=== PATIENT | female | born 1945 | race Caucasian/White ===

== ENCOUNTER 2024-10-25 10:13 | Day surgery (SDC) | payer MEDICARE ==
[2024-10-24 10:51] LABS: BASOPHILS % (AUTO) 0.6 % (0-1); EOSINOPHILS # (AUTO) 0.2 X10'3 (0-0.9); EOSINOPHILS % (AUTO) 3.6 % (0-6); HEMATOCRIT 39.2 % (35.0-45.0); HEMOGLOBIN 13.4 g/dl (12.0-16.0); LYMPHOCYTES # (AUTO) 1.7 X10'3 (1.1-4.8); LYMPHOCYTES % (AUTO) 26.3 % (21-51); MEAN CORPUSCULAR HEMOGLOBIN 30.4 PG (27.0-31.0); MEAN CORPUSCULAR HGB CONC 34.1 g/dL (33.0-36.5); MEAN CORPUSCULAR VOLUME 89.2 FL (78-98); MEAN PLATELET VOLUME 8.5 FL (7.4-10.4); MONOCYTES # (AUTO) 0.7 X10'3 (0-0.9); MONOCYTES % (AUTO) 10.5 % (2-12); NEUTROPHILS # (AUTO) 3.8 X10'3 (1.8-7.7); PLATELET COUNT 195 X10'3 (140-440); RED CELL DISTRIBUTION WIDTH 13.8 % (11.5-14.5); WHITE BLOOD COUNT 6.4 X10'3 (4.5-11.0)
[2024-10-24 11:09] LABS: ALBUMIN 3.6 G/DL (3.4-5.0); ANION GAP 7 (8-16); APTT 26 SECONDS (22-32); BLOOD UREA NITROGEN 16 MG/DL (7-18); BUN/CREATININE RATIO 19.5 (10.0-20.0); CALCIUM 8.9 MG/DL (8.5-10.1); CHLORIDE 106 MMOL/L (99-107); CREATININE 0.82 MG/DL (0.40-0.90); GLUCOSE 90 MG/DL (70-104); PROTHROMBIN TIME 10.5 SECONDS (9.0-12.0); SODIUM 142 MMOL/L (135-145); TOTAL CARBON DIOXIDE 28.6 MMOL/L (24-32); eGFR 68 ML/MIN
[2024-10-25] VITALS (8 sets, daily range): BP systolic 127–151; BP diastolic 85–99; PULSE 82–90; RESP 14–15; O2SAT 95–98
[~2024-10-25] VITALS: Ht 170.2 cm; Wt 101.4 kg
[2024-10-25] MEDS: diphenhydrAMINE 25mg capsule PO PRN (13:31)
[2024-10-25] MEDS: LORazepam 0.5 MG tablet PO PRN (13:31)
[2024-10-25] MEDS: normal saline 1,000 ML IV SCH (13:32)
[2024-10-25] MEDS ORDERED: verapamil 2.5 mg/ml inj IV ONE (14:10)
[2024-10-25] MEDS ORDERED: midazolam 1 mg/ML 2ml injection ONE (14:10)
[2024-10-25] MEDS ORDERED: LIDOcaine 1% 30ml preserv. free vial ONE (14:10)
[2024-10-25] MEDS ORDERED: fentaNYL/PF 50MCG/1 ML 2ML syringe ONE (14:10)
[2024-10-25] MEDS ORDERED: heparin 1,000unit/ml 10ml vial 10 ML ONE (14:11)
[2024-10-25] MEDS ORDERED: iohexol 350MG/ML 100ml bottle IV ONE ×2 (14:11→15:12)
[2024-10-25] MEDS ORDERED: LIDOcaine 1% (10mg/ml) 2ml vial ONE ×2 (14:11→14:13)
[2024-10-25] MEDS ORDERED: iohexol 350 MG/ML 50ML vial IV ONE ×2 (14:11→15:05)
[2024-10-25] MEDS ORDERED: nitroGLYCERIN 500mcg/5mL D5W 5 ML IV ONE (14:14)
[2024-10-25] MEDS ORDERED: OMEP20CA16 PO (14:21)
[2024-10-25] MEDS ORDERED: ROSU5TAB51 PO (14:21)
[2024-10-25] MEDS ORDERED: LEVO200T PO (14:21)
[2024-10-25] MEDS ORDERED: NORT25CA PO (14:21)
[2024-10-25] MEDS ORDERED: MELO-102 PO (14:21)
[2024-10-25] MEDS ORDERED: CARV6.253 PO (14:21)
[2024-10-25] MEDS ORDERED: LOSA25TA41 PO (14:21)
[2024-10-25] MEDS ORDERED: acetaminophen 325mg tablet PO PRN (16:35)
[2024-10-25] MEDS ORDERED: normal saline 1000ml 1,000 ML IV SCH (16:35)
[2024-10-25] MEDS ORDERED: HYDROcodone/acetaminophen 10/325mg tab PO PRN (16:35)
[2024-10-25] MEDS ORDERED: HYDROcodone/acetaminophen 5mg/325mg tablet PO PRN (16:35)
[2024-10-25] MEDS ORDERED: ondansetron/PF 4mg/2ml inj IV PRN (16:40)
[2024-10-25] MEDS ORDERED: proCHLORperazine 10 MG/2 ml inj IV PRN (16:40)
[2024-10-25] MEDS: acetaminophen 325mg tablet PO ONE (17:14)
== END 2024-10-25 19:00 | disposition home or self-care (01) ==
LOC: SSTAY O 10:13
PROVIDERS: ATTEND Internal Medicine Cardiovascular Disease
DX: R94.39 Abnormal result of other cardiovascular function study (principal); I25.10 Atherosclerotic heart disease of native coronary artery without angina pectoris; I10 Essential (primary) hypertension; I08.3 Combined rheumatic disorders of mitral, aortic and tricuspid valves; E78.5 Hyperlipidemia, unspecified; I47.10 Supraventricular tachycardia, unspecified; N28.1 Cyst of kidney, acquired; I71.21 Aneurysm of the ascending aorta, without rupture; K21.9 Gastro-esophageal reflux disease without esophagitis; Z79.899 Other long term (current) drug therapy; Z82.49 Family history of ischemic heart disease and other diseases of the circulatory system; Z82.3 Family history of stroke; Z98.890 Other specified postprocedural states
CPT/HCPCS: 36415; 71250; 80048; 85025; 85610; 85730; 93005; 93458; 93567; 99152; 99153; A6258; A6402; C1725; C1751; C1894; J1644; J2003; J2250; J3010; J3490; J7030; Q0163; Q9967; Z7610; 76937; A6449

== ENCOUNTER 2024-12-01 08:00 | Inpatient (IN) | payer MEDICARE ==
[2024-11-24] MEDS: albuterol 2.5 MG/3 ML nebule NEB ONE (12:15)
[2024-11-24 12:30] VITALS: PULSE 82; RESP 16; O2SAT 96
[2024-11-24 13:27] LABS: BASOPHILS % (AUTO) 0.7 % (0-1); EOSINOPHILS # (AUTO) 0.2 X10'3 (0-0.9); EOSINOPHILS % (AUTO) 3.7 % (0-6); LYMPHOCYTES # (AUTO) 1.3 X10'3 (1.1-4.8); LYMPHOCYTES % (AUTO) 24.8 % (21-51); MEAN CORPUSCULAR HEMOGLOBIN 30.4 PG (27.0-31.0); MEAN CORPUSCULAR HGB CONC 33.9 g/dL (33.0-36.5); MEAN CORPUSCULAR VOLUME 89.6 FL (78-98); MEAN PLATELET VOLUME 8.9 FL (7.4-10.4); MONOCYTES # (AUTO) 0.6 X10'3 (0-0.9); MONOCYTES % (AUTO) 11.6 % (2-12); NEUTROPHILS % (AUTO) 59.2 % (42-75); PRE OP HEMATOCRIT 40.9 % (35.0-45.0); PRE OP HEMOGLOBIN 13.9 g/dL (12.0-16.0); PRE OP PLATELET COUNT 193 X10'3 (140-440); PRE OP WHITE BLOOD COUNT 5.1 10'3 (4.8-10.8); RED BLOOD COUNT 4.56 X10'6 (4.20-5.60)
[2024-11-24 13:47] LABS: ALBUMIN 3.6 G/DL (3.4-5.0); ALKALINE PHOSPHATASE 65 IU/L (46-116); BLOOD UREA NITROGEN 16 MG/DL (7-18); BUN/CREATININE RATIO 19.5 (10.0-20.0); CALCIUM 8.8 MG/DL (8.5-10.1); CHLORIDE 106 MMOL/L (99-107); CREATININE 0.82 MG/DL (0.40-0.90); PRE OP ALT 22 U/L (30-65); PRE OP ANION GAP 8 (8-16); PRE OP AST 12 U/L (10-37); PRE OP BILIRUB, TOTAL 0.4 MG/DL (0.0-1.0); PRE OP GLUCOSE 99 MG/DL (70-104); PRE OP POTASSIUM 4.3 MMOL/L (3.4-5.1); PRE OP PROTIME 10.5 SECONDS (9.0-12.0); PRE OP SODIUM 141 MMOL/L (135-145); TOTAL PROTEIN 7.1 G/DL (6.4-8.2); eCRCL 56 ML/MIN; eGFR 68 ML/MIN
[2024-11-24 13:52] LABS: HEMOGLOBIN A1C 5.2 % (4.5-6.2)
[2024-11-24 14:43] LABS: ABG BASE EXCESS 0.1 mmol/L (-2.0-3.0); ABG HCO3 24.2 mmol/L (21.0-28.0); ABG PCO2 (T) 37.7 mmHg (32.0-45.0); ABG PH (T) 7.426 (7.350-7.450); ABG PO2 (T) 75.2 mmHg (83.0-108.0); ALLEN'S TEST POSITIVE; FCOHb 0.9 % (0.5-1.5); FHHb 4.9 % (0.0-5.0); FMetHb 0.3 % (0.0-1.5); FO2Hb 93.9 % (94.0-98.0); MODE ROOM AIR; TOTAL HEMOGLOBIN 13.7 G/dl (12.0-16.0)
[~2024-12-01] VITALS: Ht 153.7 cm; Wt 106.6 kg
[~2024-12-01 08:00] MED LIST: CARV6.253 PO; LEVO200T PO; LOSA25TA41 PO; MELO-102 PO; NORT25CA PO; OMEP20CA16 PO; ROSU20TA98 PO
[2024-12-03] VITALS (15 sets, daily range): BP systolic 85–155; BP diastolic 43–96; PULSE 67–86; RESP 12–16; TEMP 98.2; O2SAT 95–100
[2024-12-03] MEDS: DOCUMENT DATE & TIME OF BETA-BLOCKER PO ONE (05:30)
[2024-12-03] MEDS: metoprolol tartrate 12.5mg (1/2 tablet) PO ONE (05:30)
[2024-12-03] MEDS ORDERED: dextrose 50%-water 50ml dispensing syringe IV PRN ×2 (05:30→17:40)
[2024-12-03] MEDS: Insulin Reg/NS 100units/100mL 100 ML IV SCH ×2 (05:30→17:40)
[2024-12-03] MEDS ORDERED: insulin glargine (Lantus) pen - multi-dose SQ PRN ×2 (05:30→17:40)
[2024-12-03] MEDS ORDERED: vancomycin 1,000mg inj ONE (07:00)
[2024-12-03] MEDS ORDERED: epiNEPHrine 1 mg/ml inj ONE (07:00)
[2024-12-03] MEDS ORDERED: ceFAZolin 1000mg inj ONE (07:00)
[2024-12-03] MEDS ORDERED: BUPIVAcaine 0.5% inj/PF 30 ML ONE (07:01)
[2024-12-03] MEDS: ceFAZolin 2gm in dextrose, iso 50 ML IV ONE (10:50)
[2024-12-03] MEDS: famotidine 20mg tablet PO ONE (10:50)
[2024-12-03] MEDS: VANCOMYCIN/H2O 1.5g/300mL PB 300 ML IV ONE (10:50)
[2024-12-03] MEDS: ringers solution, lacted 1,000 ML IV SCH (10:50)
[2024-12-03 11:59] LABS: BILIRUBIN,URINE NEGATIVE (Neg); CLARITY,URINE CLEAR (Clear); COLOR,URINE YELLOW (Yellow); GLUCOSE, URINE NEGATIVE (Neg); KETONES,URINE NEGATIVE (Neg); LEUKOCYTE ESTERASE ,URINE TRACE (Neg); NITRITES, URINE NEGATIVE (Neg); OCCULT BLOOD,URINE NEGATIVE (Neg); PROTEIN,URINE NEGATIVE (Neg); UROBILINOGEN,URINE 0.2 E.U/dL (0.2-1.0)
[2024-12-03 12:03] LABS: UA COLLECTION TYPE CLN CATCH MIDSTREAM
[2024-12-03 12:04] LABS: BACTERIA,URINE NONE SEEN /HPF (Neg); MUCUS STRANDS NONE SEEN /LPF (Neg); RBC,URINE NONE SEEN /HPF (0-2); SQUAMOUS EPITHELIAL CELL,UR FEW /LPF (FEW); WBC,URINE 0-4 /HPF (0-4)
[2024-12-03] MEDS: LORazepam 2 mg/ml vial IV ONE (12:12)
[2024-12-03] MEDS: mupirocin 2% nasal ointment 1gm UD NS ONE (12:13)
[2024-12-03] MEDS ORDERED: SUfentanil 50mcg/ml 1ml amp IV ONE (12:40)
[2024-12-03] MEDS ORDERED: MIDAZolam 1 MG/ML 5ML VIAL ONE (12:40)
[2024-12-03] MEDS ORDERED: rocuronium 10mg/ml inj IV ONE ×2 (12:40)
[2024-12-03] MEDS ORDERED: sevoflurane 250ml liquid IH ONE (12:41)
[2024-12-03] MEDS ORDERED: propofol inj 20 ML IV ONE (12:44)
[2024-12-03] MEDS: epiNEPHrine 1 mg/ml inj IU ONE (13:52)
[2024-12-03] MEDS ORDERED: albumin (Human) 5% 250ml 250 ML IV ONE (14:08)
[2024-12-03] MEDS ORDERED: metoclopramide 5 mg/ml inj IV PRN (17:40)
[2024-12-03] MEDS ORDERED: magnesium hydroxide 30ml (MOM) UD suspension PO PRN (17:40)
[2024-12-03] MEDS ORDERED: potassium CL 10mEq/100ml bag 100 ML IV PRN (17:40)
[2024-12-03] MEDS ORDERED: ondansetron/PF 4mg/2ml inj IV PRN (17:40)
[2024-12-03] MEDS ORDERED: potassium Cl 20 mEq SR tablet PO PRN (17:40)
[2024-12-03] MEDS ORDERED: niCARDipine-NS 40mg/200ml IVPB 200 ML IV PRN (17:40)
[2024-12-03] MEDS ORDERED: potassium Cl 20mEq/100mL bag 100 ML IV PRN (17:40)
[2024-12-03] MEDS ORDERED: morphine 4 MG/ML inj SYRINge IV PRN (17:40)
[2024-12-03] MEDS ORDERED: acetaminophen 325mg tablet PO PRN (17:40)
[2024-12-03] MEDS ORDERED: potassium Cl 40MEQ/1/2NS 520ml 520 ML IV PRN (17:40)
[2024-12-03] MEDS ORDERED: magnesium sulf-water 4G/100mL 100 ML IV PRN (17:40)
[2024-12-03] MEDS ORDERED: mineral oil 133ml enema RC PRN (17:40)
[2024-12-03] MEDS ORDERED: sodium phosphate inj. 30 MMOL in dextrose 5%-water 250 ML IV PRN (17:40)
[2024-12-03] MEDS ORDERED: bisacodyl 10mg suppository rectal RC PRN (17:40)
[2024-12-03] MEDS ORDERED: Neutra Phos packet PO PRN (17:40)
[2024-12-03] MEDS: albumin (Human) 5% 250ml 250 ML IV PRN (18:12)
[2024-12-03] MEDS: nitroGLYCERIN-Tridil 50MG/D5W 250 ML IV SCH (18:12)
[2024-12-03] MEDS: sodium chloride 0.45% 1,000 ML IV SCH (18:13)
[2024-12-03] MEDS ORDERED: propofol 10mg/ml 20ml vial IV PRN (18:20)
[2024-12-03] MEDS ORDERED: fentaNYL/PF 50MCG/1 ML 2ML syringe IV PRN (18:20)
[2024-12-03 18:26] LABS: BASOPHILS % (AUTO) 0.2 % (0-1); EOSINOPHILS # (AUTO) 0.1 X10'3 (0-0.9); EOSINOPHILS % (AUTO) 0.6 % (0-6); HEMATOCRIT 29.6 % (35.0-45.0); HEMOGLOBIN 9.8 g/dl (12.0-16.0); LYMPHOCYTES # (AUTO) 0.9 X10'3 (1.1-4.8); LYMPHOCYTES % (AUTO) 7.8 % (21-51); MEAN CORPUSCULAR HEMOGLOBIN 29.9 PG (27.0-31.0); MEAN CORPUSCULAR HGB CONC 33.2 g/dL (33.0-36.5); MEAN CORPUSCULAR VOLUME 89.9 FL (78-98); MEAN PLATELET VOLUME 8.3 FL (7.4-10.4); MONOCYTES # (AUTO) 0.7 X10'3 (0-0.9); MONOCYTES % (AUTO) 5.5 % (2-12); NEUTROPHILS # (AUTO) 10.4 X10'3 (1.8-7.7); NEUTROPHILS % (AUTO) 85.9 % (42-75); PLATELET COUNT 122 X10'3 (140-440); RED BLOOD COUNT 3.29 X10'6 (4.20-5.60); RED CELL DISTRIBUTION WIDTH 13.9 % (11.5-14.5); WHITE BLOOD COUNT 12.1 X10'3 (4.5-11.0)
[2024-12-03 18:34] LABS: APTT 36 SECONDS (22-32); INR 1.4 INR; PROTHROMBIN TIME 14.4 SECONDS (9.0-12.0)
[2024-12-03 18:37] LABS: ALANINE AMINOTRANSFERASE 15 U/L (12-78); ALBUMIN 2.8 G/DL (3.4-5.0); ALBUMIN/GLOBULIN RATIO 1.8 (1.1-1.5); ALKALINE PHOSPHATASE 26 IU/L (46-116); ANION GAP 10 (8-16); ASPARTATE AMINO TRANSFERASE 30 U/L (10-37); BILIRUBIN,TOTAL 0.6 MG/DL (0.1-1.0); BLOOD UREA NITROGEN 13 MG/DL (7-18); BUN/CREATININE RATIO 15.7 (10.0-20.0); CALCIUM 7.3 MG/DL (8.5-10.1); CHLORIDE 110 MMOL/L (99-107); CREATININE 0.83 MG/DL (0.40-0.90); GLUCOSE 97 MG/DL (70-104); MAGNESIUM 3.2 MG/DL (1.5-2.4); PHOSPHORUS 1.5 MG/DL (2.3-4.5); POTASSIUM 3.2 MMOL/L (3.5-5.1); SODIUM 143 MMOL/L (135-145); TOTAL CARBON DIOXIDE 23.3 MMOL/L (24-32); TOTAL PROTEIN 4.4 G/DL (6.4-8.2); eCRCL 42 ML/MIN; eGFR 67 ML/MIN
[2024-12-03] MEDS: propofol 1000mg/100ml bottle 100 ML IV ONE (19:03)
[2024-12-03] MEDS: sodium phosphate inj. 15 MMOL in dextrose 5%-water 250 ML IV PRN (19:14)
[2024-12-03] MEDS: potassium Cl 40MEQ/270ML bag 250 ML IV PRN (19:14)
[2024-12-03] MEDS: propofol 1000mg/100ml bottle 100 ML IV SCH (19:47)
[2024-12-03] MEDS: FENTANYL-0.9 % NACL/PF 100 ML IV SCH (20:10)
[2024-12-03] MEDS: VANCOMYCIN 1GM 200ML H20 (PEG) 200 ML IV SCH (20:11)
[2024-12-03] MEDS: mupirocin 2% nasal ointment 1gm UD NS SCH (20:16)
[2024-12-03] MEDS: sennosides/docusate sodium tablet PO SCH (20:16)
[2024-12-03] MEDS: atorvastatin 10mg tablet PO SCH (20:16)
[2024-12-03] MEDS: nortriptyline 25mg capsule PO SCH (20:18)
[2024-12-04] VITALS (32 sets, daily range): BP systolic 75–115; BP diastolic 45–81; PULSE 81–100; RESP 12–28; O2SAT 92–98
[2024-12-04] MEDS: ceFAZolin/D5W- 1GM premix 50 ML IV SCH
[2024-12-04 00:28] LABS: BASOPHILS % (AUTO) 0.1 % (0-1); EOSINOPHILS % (AUTO) 0 % (0-6); HEMATOCRIT 24.4 % (35.0-45.0); HEMOGLOBIN 8.3 g/dl (12.0-16.0); LYMPHOCYTES # (AUTO) 0.4 X10'3 (1.1-4.8); MEAN CORPUSCULAR HEMOGLOBIN 30.4 PG (27.0-31.0); MEAN CORPUSCULAR HGB CONC 33.9 g/dL (33.0-36.5); MEAN CORPUSCULAR VOLUME 89.6 FL (78-98); MEAN PLATELET VOLUME 8.5 FL (7.4-10.4); MONOCYTES # (AUTO) 0.3 X10'3 (0-0.9); MONOCYTES % (AUTO) 3.5 % (2-12); NEUTROPHILS # (AUTO) 8.4 X10'3 (1.8-7.7); NEUTROPHILS % (AUTO) 92.4 % (42-75); PLATELET COUNT 97 X10'3 (140-440); RED BLOOD COUNT 2.73 X10'6 (4.20-5.60); RED CELL DISTRIBUTION WIDTH 14.1 % (11.5-14.5); WHITE BLOOD COUNT 9.1 X10'3 (4.5-11.0)
[2024-12-04 00:45] LABS: ALANINE AMINOTRANSFERASE 17 U/L (12-78); ALBUMIN 3.6 G/DL (3.4-5.0); ALBUMIN/GLOBULIN RATIO 2.6 (1.1-1.5); ALKALINE PHOSPHATASE 24 IU/L (46-116); ANION GAP 8 (8-16); ASPARTATE AMINO TRANSFERASE 32 U/L (10-37); BILIRUBIN,TOTAL 0.8 MG/DL (0.1-1.0); BLOOD UREA NITROGEN 15 MG/DL (7-18); BUN/CREATININE RATIO 16.5 (10.0-20.0); CHLORIDE 112 MMOL/L (99-107); CREATININE 0.91 MG/DL (0.40-0.90); GLUCOSE 179 MG/DL (70-104); MAGNESIUM 3.1 MG/DL (1.5-2.4); PHOSPHORUS 3.4 MG/DL (2.3-4.5); POTASSIUM 5.1 MMOL/L (3.5-5.1); SODIUM 142 MMOL/L (135-145); TOTAL CARBON DIOXIDE 22.3 MMOL/L (24-32); eCRCL 38 ML/MIN; eGFR 60 ML/MIN
[2024-12-04 07:26] LABS: ALANINE AMINOTRANSFERASE 17 U/L (12-78); ALBUMIN 3.6 G/DL (3.4-5.0); ALBUMIN/GLOBULIN RATIO 2.1 (1.1-1.5); ALKALINE PHOSPHATASE 21 IU/L (46-116); ANION GAP 7 (8-16); ASPARTATE AMINO TRANSFERASE 29 U/L (10-37); BILIRUBIN,TOTAL 0.4 MG/DL (0.1-1.0); BLOOD UREA NITROGEN 14 MG/DL (7-18); BUN/CREATININE RATIO 15.4 (10.0-20.0); CALCIUM 7.3 MG/DL (8.5-10.1); CHLORIDE 112 MMOL/L (99-107); CREATININE 0.91 MG/DL (0.40-0.90); GLUCOSE 123 MG/DL (70-104); MAGNESIUM 2.7 MG/DL (1.5-2.4); PHOSPHORUS 3.8 MG/DL (2.3-4.5); POTASSIUM 4.8 MMOL/L (3.5-5.1); SODIUM 144 MMOL/L (135-145); TOTAL CARBON DIOXIDE 24.6 MMOL/L (24-32); TOTAL PROTEIN 5.3 G/DL (6.4-8.2); eCRCL 38 ML/MIN; eGFR 60 ML/MIN
[2024-12-04 07:31] LABS: BASOPHILS % (AUTO) 0.1 % (0-1); EOSINOPHILS % (AUTO) 0 % (0-6); HEMATOCRIT 24.4 % (35.0-45.0); HEMOGLOBIN 8.2 g/dl (12.0-16.0); LYMPHOCYTES # (AUTO) 0.6 X10'3 (1.1-4.8); LYMPHOCYTES % (AUTO) 5.1 % (21-51); MEAN CORPUSCULAR HEMOGLOBIN 30.3 PG (27.0-31.0); MEAN CORPUSCULAR HGB CONC 33.4 g/dL (33.0-36.5); MEAN CORPUSCULAR VOLUME 90.7 FL (78-98); MEAN PLATELET VOLUME 9.2 FL (7.4-10.4); MONOCYTES # (AUTO) 0.5 X10'3 (0-0.9); MONOCYTES % (AUTO) 4.5 % (2-12); NEUTROPHILS # (AUTO) 9.8 X10'3 (1.8-7.7); NEUTROPHILS % (AUTO) 90.3 % (42-75); PLATELET COUNT 105 X10'3 (140-440); RED BLOOD COUNT 2.69 X10'6 (4.20-5.60); RED CELL DISTRIBUTION WIDTH 14.4 % (11.5-14.5); WHITE BLOOD COUNT 10.9 X10'3 (4.5-11.0)
[2024-12-04 07:36] LABS: ABG BASE EXCESS -3.8 mmol/L (-2.0-3.0); ABG HCO3 21.3 mmol/L (21.0-28.0); ABG OXYGEN SATURATION 98.1 % (94.0-98.0); ABG PCO2 (T) 39.2 mmHg (32.0-45.0); ABG PH (T) 7.354 (7.350-7.450); ABG PO2 (T) 107.8 mmHg (83.0-108.0); FCOHb 1.6 % (0.5-1.5); FHHb 1.9 % (0.0-5.0); FMetHb 0.3 % (0.0-1.5); FO2Hb 96.2 % (94.0-98.0); MODE SIMV/VC; PATIENT TEMPERATURE 37.3; PEEP 5 cm H2O; RESPIRATORY RATE 12 b/min; TIDAL VOLUME 450 mL; TOTAL HEMOGLOBIN 8.4 G/dl (12.0-16.0)
[2024-12-04 07:37] LABS: ABG BASE EXCESS -1.9 mmol/L (-2.0-3.0); ABG HCO3 21.6 mmol/L (21.0-28.0); ABG OXYGEN SATURATION 99.5 % (94.0-98.0); ABG PH (T) 7.468 (7.350-7.450); ABG PO2 (T) 270.6 mmHg (83.0-108.0); FCOHb 0.7 % (0.5-1.5); FHHb 0.5 % (0.0-5.0); FMetHb 0.3 % (0.0-1.5); FO2Hb 98.5 % (94.0-98.0); MODE VENT - SIMV/VC; PATIENT TEMPERATURE 35.3; PEEP 5 cm H2O; RESPIRATORY RATE 14 b/min; TIDAL VOLUME 500 mL; TOTAL HEMOGLOBIN 10.3 G/dl (12.0-16.0)
[2024-12-04 07:42] LABS: ABG BASE EXCESS 1.8 mmol/L (-2.0-3.0); ABG HCO3 25.1 mmol/L (21.0-28.0); ABG OXYGEN SATURATION 98.9 % (94.0-98.0); ABG PCO2 33.7 mmHg (32.0-45.0); CL (ABG) 104 mmol/L (98-107); FCOHb 0.1 % (0.5-1.5); FHHb 1.1 % (0.0-5.0); FMetHb 0.1 % (0.0-1.5); FO2Hb 98.7 % (94.0-98.0); GLUCOSE (ABG) 106 mg/dl (65-95); IONIZED CA (ABG) 0.93 mmol/L (1.15-1.33); K (ABG) 4.1 mmol/L (3.40-4.50); TOTAL HEMOGLOBIN 7.9 G/dl (12.0-16.0)
[2024-12-04 07:42] LABS: ABG BASE EXCESS 0.3 mmol/L (-2.0-3.0); ABG HCO3 26.7 mmol/L (21.0-28.0); ABG OXYGEN SATURATION 99.4 % (94.0-98.0); ABG PCO2 50.6 mmHg (32.0-45.0); ABG PH 7.341 (7.350-7.450); ABG PO2 275.4 mmHg (83.0-108.0); CL (ABG) 102 mmol/L (98-107); FCOHb 0.5 % (0.5-1.5); FHHb 0.6 % (0.0-5.0); FMetHb 0.3 % (0.0-1.5); FO2Hb 98.6 % (94.0-98.0); GLUCOSE (ABG) 141 mg/dl (65-95); IONIZED CA (ABG) 1.18 mmol/L (1.15-1.33); K (ABG) 4.5 mmol/L (3.40-4.50); TOTAL HEMOGLOBIN 13.4 G/dl (12.0-16.0)
[2024-12-04 07:42] LABS: ABG BASE EXCESS 1.5 mmol/L (-2.0-3.0); ABG OXYGEN SATURATION 98.9 % (94.0-98.0); ABG PCO2 34.7 mmHg (32.0-45.0); ABG PH 7.475 (7.350-7.450); CL (ABG) 103 mmol/L (98-107); FCOHb 0.3 % (0.5-1.5); FHHb 1.1 % (0.0-5.0); FMetHb 0.3 % (0.0-1.5); FO2Hb 98.3 % (94.0-98.0); GLUCOSE (ABG) 107 mg/dl (65-95); IONIZED CA (ABG) 0.94 mmol/L (1.15-1.33); TOTAL HEMOGLOBIN 8.5 G/dl (12.0-16.0)
[2024-12-04 07:43] LABS: ABG BASE EXCESS 0.9 mmol/L (-2.0-3.0); ABG HCO3 24.3 mmol/L (21.0-28.0); ABG OXYGEN SATURATION 99.2 % (94.0-98.0); ABG PCO2 33.1 mmHg (32.0-45.0); ABG PH 7.483 (7.350-7.450); CL (ABG) 105 mmol/L (98-107); FCOHb 0.6 % (0.5-1.5); FHHb 0.8 % (0.0-5.0); FMetHb 0.3 % (0.0-1.5); FO2Hb 98.3 % (94.0-98.0); GLUCOSE (ABG) 112 mg/dl (65-95); IONIZED CA (ABG) 0.99 mmol/L (1.15-1.33); K (ABG) 4.2 mmol/L (3.40-4.50); TOTAL HEMOGLOBIN 7.8 G/dl (12.0-16.0)
[2024-12-04 07:43] LABS: ABG BASE EXCESS 0.2 mmol/L (-2.0-3.0); ABG HCO3 23.1 mmol/L (21.0-28.0); ABG OXYGEN SATURATION 99.3 % (94.0-98.0); ABG PCO2 30.4 mmHg (32.0-45.0); ABG PH 7.499 (7.350-7.450); CL (ABG) 106 mmol/L (98-107); FCOHb 0.8 % (0.5-1.5); FHHb 0.7 % (0.0-5.0); FMetHb 0.3 % (0.0-1.5); FO2Hb 98.2 % (94.0-98.0); GLUCOSE (ABG) 109 mg/dl (65-95); IONIZED CA (ABG) 0.99 mmol/L (1.15-1.33); K (ABG) 4.3 mmol/L (3.40-4.50); TOTAL HEMOGLOBIN 7.9 G/dl (12.0-16.0)
[2024-12-04 07:44] LABS: ABG BASE EXCESS -0.8 mmol/L (-2.0-3.0); ABG HCO3 24.2 mmol/L (21.0-28.0); ABG OXYGEN SATURATION 61.3 % (94.0-98.0); ABG PCO2 41.4 mmHg (32.0-45.0); ABG PH 7.384 (7.350-7.450); ABG PO2 30.1 mmHg (83.0-108.0); CL (ABG) 107 mmol/L (98-107); FCOHb 1.1 % (0.5-1.5); FHHb 38.3 % (0.0-5.0); FO2Hb 60.6 % (94.0-98.0); GLUCOSE (ABG) 103 mg/dl (65-95); IONIZED CA (ABG) 1.15 mmol/L (1.15-1.33); K (ABG) 3.7 mmol/L (3.40-4.50); TOTAL HEMOGLOBIN 7.2 G/dl (12.0-16.0)
[2024-12-04] MEDS: aspirin 81mg tab.chew PO SCH (07:46)
[2024-12-04] MEDS: levoTHYROXINE 100mcg tablet PO SCH (07:46)
[2024-12-04] MEDS: metoprolol tartrate 12.5mg (1/2 tablet) PO SCH (07:47)
[2024-12-04] MEDS: dexmedetomidin/NS 400mcg/100ml 100 ML IV PRN (07:48)
[2024-12-04] MEDS ORDERED: heparin 10,000 units/1 ML INJ ONE (08:00)
[2024-12-04 09:09] LABS: ACT @ 1.70 U 270 SEC (193-297); ACT @ 2.84 U 364 SEC (260-420); BASELINE ACT 124 SEC (101-148); PATIENT WEIGHT 100.6 KG
[2024-12-04] MEDS: morphine 2 MG/ML inj. syringe IV PRN (09:42)
[2024-12-04] MEDS: amiodarone 150mg/dext, iso-os 100 ML IV ONE (09:47)
[2024-12-04] MEDS: amiodarone/D5 360MG/200ML BAG 200 ML IV SCH (09:47)
[2024-12-04] MEDS: HYDROcodone/acetaminophen 10/325mg tab PO PRN ×2 (15:11→19:15)
[2024-12-04 15:30] LABS: ABG PO2 436.4 mmHg (83.0-108.0)
[2024-12-04 15:31] LABS: ABG PO2 430.3 mmHg (83.0-108.0)
[2024-12-04 15:31] LABS: ABG PO2 438.6 mmHg (83.0-108.0)
[2024-12-04 15:31] LABS: ABG PO2 502.5 mmHg (83.0-108.0)
[2024-12-04] MEDS: INSULIN LISPRO 100 UNIT/ML INSULN.PEN MULTI-DOSE SQ SCH (17:07)
[2024-12-04] MEDS: COMMUNICATION ORDER 1 EA MISC MC ONE ×2 (20:50)
[2024-12-04] MEDS: insulin glargine (Lantus) pen - multi-dose SQ SCH (21:00)
[2024-12-05] VITALS (25 sets, daily range): BP systolic 97–124; BP diastolic 48–71; PULSE 79–115; RESP 12–26; TEMP 95.5–98.9; O2SAT 88–99
[2024-12-05 02:53] LABS: BASOPHILS % (AUTO) 0.1 % (0-1); EOSINOPHILS % (AUTO) 0 % (0-6); HEMATOCRIT 22.9 % (35.0-45.0); HEMOGLOBIN 7.5 g/dl (12.0-16.0); LYMPHOCYTES # (AUTO) 1.2 X10'3 (1.1-4.8); LYMPHOCYTES % (AUTO) 7.3 % (21-51); MEAN CORPUSCULAR HEMOGLOBIN 29.7 PG (27.0-31.0); MEAN CORPUSCULAR HGB CONC 32.9 g/dL (33.0-36.5); MEAN CORPUSCULAR VOLUME 90.3 FL (78-98); MONOCYTES # (AUTO) 1.5 X10'3 (0-0.9); MONOCYTES % (AUTO) 8.7 % (2-12); NEUTROPHILS # (AUTO) 14.3 X10'3 (1.8-7.7); NEUTROPHILS % (AUTO) 83.9 % (42-75); PLATELET COUNT 111 X10'3 (140-440); RED BLOOD COUNT 2.54 X10'6 (4.20-5.60); RED CELL DISTRIBUTION WIDTH 14.8 % (11.5-14.5); WHITE BLOOD COUNT 17.1 X10'3 (4.5-11.0)
[2024-12-05 03:36] LABS: ALBUMIN 3.6 G/DL (3.4-5.0); ANION GAP 5 (8-16); BLOOD UREA NITROGEN 19 MG/DL (7-18); CALCIUM 8.1 MG/DL (8.5-10.1); CHLORIDE 111 MMOL/L (99-107); CREATININE 0.76 MG/DL (0.40-0.90); GLUCOSE 180 MG/DL (70-104); POTASSIUM 4.6 MMOL/L (3.5-5.1); SODIUM 142 MMOL/L (135-145); TOTAL CARBON DIOXIDE 26.2 MMOL/L (24-32); eCRCL 46 ML/MIN; eGFR 74 ML/MIN
[2024-12-05] MEDS: pantoprazole 40mg Tablet.DR PO SCH (07:10)
[2024-12-05 08:08] LABS: MAGNESIUM 2.3 MG/DL (1.5-2.4)
[2024-12-05] MEDS: magnesium sulf-water 2g/50mL 50 ML IV PRN (08:31)
[2024-12-05] MEDS: furosemide 40mg/4ml inj IV ONE ×2 (08:38→08:43)
[2024-12-05] MEDS: folic acid 1mg/0.2ml inj IV SCH (09:34)
[2024-12-05 11:07] LABS: PRO BRAIN NATRIURETIC PEPTIDE 2302 PG/ML (0-450)
[2024-12-05] MEDS: ferrous sulfate 325mg tablet PO SCH (12:31)
[2024-12-05] MEDS: acetaminophen 325mg tablet PO PRN (15:10)
[2024-12-05] MEDS: amiodarone 200mg tablet PO SCH (20:17)
[2024-12-06] VITALS (17 sets, daily range): BP systolic 96–124; BP diastolic 48–74; PULSE 78–131; RESP 14–23; TEMP 97.2–97.9; O2SAT 95–100
[2024-12-06] MEDS: amiodarone/D5 360MG/200ML BAG 200 ML IV SCH (03:58)
[2024-12-06 06:41] LABS: BASOPHILS % (AUTO) 0.2 % (0-1); EOSINOPHILS % (AUTO) 0 % (0-6); HEMATOCRIT 25.1 % (35.0-45.0); HEMOGLOBIN 8.1 g/dl (12.0-16.0); LYMPHOCYTES # (AUTO) 1.5 X10'3 (1.1-4.8); LYMPHOCYTES % (AUTO) 9.2 % (21-51); MEAN CORPUSCULAR HEMOGLOBIN 29.9 PG (27.0-31.0); MEAN CORPUSCULAR HGB CONC 32.3 g/dL (33.0-36.5); MEAN CORPUSCULAR VOLUME 92.5 FL (78-98); MEAN PLATELET VOLUME 9.7 FL (7.4-10.4); MONOCYTES # (AUTO) 1.6 X10'3 (0-0.9); MONOCYTES % (AUTO) 9.7 % (2-12); NEUTROPHILS # (AUTO) 13.5 X10'3 (1.8-7.7); NEUTROPHILS % (AUTO) 80.9 % (42-75); PLATELET COUNT 114 X10'3 (140-440); RED BLOOD COUNT 2.72 X10'6 (4.20-5.60); RED CELL DISTRIBUTION WIDTH 15.1 % (11.5-14.5); WHITE BLOOD COUNT 16.7 X10'3 (4.5-11.0)
[2024-12-06 06:59] LABS: ALBUMIN 2.9 G/DL (3.4-5.0); ANION GAP 8 (8-16); BLOOD UREA NITROGEN 21 MG/DL (7-18); BUN/CREATININE RATIO 30.9 (10.0-20.0); CALCIUM 8.3 MG/DL (8.5-10.1); CHLORIDE 106 MMOL/L (99-107); CREATININE 0.68 MG/DL (0.40-0.90); GLUCOSE 163 MG/DL (70-104); POTASSIUM 4.1 MMOL/L (3.5-5.1); SODIUM 140 MMOL/L (135-145); THYROID STIMULATING HORMONE 0.21 ulU/ml (0.34-4.50); TOTAL CARBON DIOXIDE 26.1 MMOL/L (24-32); eCRCL 51 ML/MIN; eGFR 84 ML/MIN
[2024-12-06 12:25] LABS: CHOLESTEROL 79 MG/DL (0-200); HDL CHOLESTEROL 39 MG/DL (35-60); LDL CHOLESTEROL 28 MG/DL (50-100); PRO BRAIN NATRIURETIC PEPTIDE 5835 PG/ML (0-450); TRIGLYCERIDES 79 MG/DL (20-135)
[2024-12-06] MEDS: heparin, porcine 5000 units/ml vial SQ SCH (17:42)
[2024-12-06] MEDS: lactose-reduced food (Ensure Enlive) - 237ml bottle PO SCH (18:00)
[2024-12-06] MEDS: amiodarone 200mg tablet PO SCH (21:09)
[2024-12-07] VITALS (20 sets, daily range): BP systolic 97–143; BP diastolic 59–95; PULSE 76–135; RESP 14–26; TEMP 97.1–97.8; O2SAT 91–97
[2024-12-07 07:59] LABS: BASOPHILS % (AUTO) 0.1 % (0-1); EOSINOPHILS # (AUTO) 0.1 X10'3 (0-0.9); EOSINOPHILS % (AUTO) 0.4 % (0-6); HEMATOCRIT 24.3 % (35.0-45.0); HEMOGLOBIN 8.2 g/dl (12.0-16.0); LYMPHOCYTES # (AUTO) 1.6 X10'3 (1.1-4.8); LYMPHOCYTES % (AUTO) 11.1 % (21-51); MEAN CORPUSCULAR HEMOGLOBIN 30.5 PG (27.0-31.0); MEAN CORPUSCULAR HGB CONC 33.9 g/dL (33.0-36.5); MEAN PLATELET VOLUME 9.3 FL (7.4-10.4); MONOCYTES # (AUTO) 1.4 X10'3 (0-0.9); NEUTROPHILS # (AUTO) 11.2 X10'3 (1.8-7.7); NEUTROPHILS % (AUTO) 78.4 % (42-75); PLATELET COUNT 139 X10'3 (140-440); RED CELL DISTRIBUTION WIDTH 14.4 % (11.5-14.5); WHITE BLOOD COUNT 14.3 X10'3 (4.5-11.0)
[2024-12-07 08:33] LABS: ANION GAP 7 (8-16); BLOOD UREA NITROGEN 21 MG/DL (7-18); BUN/CREATININE RATIO 33.3 (10.0-20.0); CALCIUM 8.4 MG/DL (8.5-10.1); CHLORIDE 105 MMOL/L (99-107); CREATININE 0.63 MG/DL (0.40-0.90); GLUCOSE 121 MG/DL (70-104); POTASSIUM 3.6 MMOL/L (3.5-5.1); SODIUM 139 MMOL/L (135-145); TOTAL CARBON DIOXIDE 26.9 MMOL/L (24-32); eCRCL 55 ML/MIN; eGFR > 90 ML/MIN
[2024-12-07] MEDS ORDERED: amiodarone/D5 360MG/200ML BAG 200 ML IV SCH ×2 (08:55→09:05)
[2024-12-07] MEDS: amiodarone/D5 360MG/200ML BAG 200 ML IV SCH (09:30)
[2024-12-07] MEDS: apixaban 5mg tablet PO SCH (20:14)
[2024-12-08] VITALS: BP 110/71; PULSE 96
[2024-12-08 02:00] VITALS: BP_SYST 110; BP_SYST 116; BP_DIAS 71; BP_DIAS 72; PULSE 126; PULSE 130; RESP 22; TEMP 96.9; O2SAT 93
[2024-12-08 04:00] VITALS: BP 100/54; PULSE 119
[2024-12-08 06:00] VITALS: BP 106/62; PULSE 138; RESP 20; TEMP 96.8; O2SAT 93
[2024-12-08 08:00] VITALS: RESP 20; O2SAT 94
[2024-12-08] MEDS: amiodarone in dextrose, iso-osm 150mg/100ml bag IV ONE (08:24)
[2024-12-08 12:37] VITALS: BP_SYST 110; PULSE 91
[2024-12-08] MEDS: metoprolol tartrate 25mg tablet PO ONE (12:37)
[2024-12-08] MEDS: amiodarone 200mg tablet PO SCH (12:37)
[2024-12-08] MEDS ORDERED: metoprolol tartrate 25mg tablet PO SCH (20:00)
[2024-12-08] MEDS ORDERED: apixaban 2.5mg tablet PO SCH (20:00)
== END 2024-12-08 14:11 | DRG 235 ==
LOC: MERGE 08:30 → PAS IN 12-03 10:30 → CICU 2S 12-03 14:24 → PCU 3S 12-05 17:15
PROVIDERS: ADMIT Thoracic Surgery (Cardiothoracic Vascular Surgery); ATTEND Thoracic Surgery (Cardiothoracic Vascular Surgery)
PROC: 02UX0JZ Supplement Thoracic Aorta, Ascending/Arch with Synthetic Substitute, Open Approach (ICD-10-PCS; 2024-12-03)
PROC: 5A02210 Assistance with Cardiac Output using Balloon Pump, Continuous (ICD-10-PCS; 2024-12-03)
PROC: 30233R1 Transfusion of Nonautologous Platelets into Peripheral Vein, Percutaneous Approach (ICD-10-PCS; 2024-12-03)
PROC: 021109W Bypass Coronary Artery, Two Arteries from Aorta with Autologous Venous Tissue, Open Approach (ICD-10-PCS; 2024-12-03)
PROC: 06BP4ZZ Excision of Right Saphenous Vein, Percutaneous Endoscopic Approach (ICD-10-PCS; 2024-12-03)
PROC: B24BZZ4 Ultrasonography of Heart with Aorta, Transesophageal (ICD-10-PCS; 2024-12-03)
PROC: 02100Z9 Bypass Coronary Artery, One Artery from Left Internal Mammary, Open Approach (ICD-10-PCS; principal; 2024-12-03 12:41)
PROC: 5A0935A Assistance with Respiratory Ventilation, Less than 24 Consecutive Hours, High Flow/Velocity Cannula (ICD-10-PCS; 2024-12-05)
DX: I71.21 Aneurysm of the ascending aorta, without rupture (principal); G92.8 Other toxic encephalopathy; J98.11 Atelectasis; Z68.42 Body mass index [BMI] 45.0-49.9, adult; I25.10 Atherosclerotic heart disease of native coronary artery without angina pectoris; E87.70 Fluid overload, unspecified; I10 Essential (primary) hypertension; I34.0 Nonrheumatic mitral (valve) insufficiency; E78.5 Hyperlipidemia, unspecified; I48.0 Paroxysmal atrial fibrillation; D64.89 Other specified anemias; I35.1 Nonrheumatic aortic (valve) insufficiency; R41.0 Disorientation, unspecified
CPT/HCPCS: 36415; 36430; 36600; 71045; 71046; 80048; 80053; 80061; 81001; 82330; 82435; 82803; 82947; 82948; 83036; 83735; 83880; 84100; 84132; 84295; 84443; 85018; 85025; 85347; 85610; 85730; 86885; 86900; 86901; 86920; 87070; 87081; 87088; 88304; 88313; 93005; 93312; 93325; 93970; 94002; 94003; 94010; 94664; 94668; 94760; 97110; 97116; 97161; 97530; A4333; A4615; A4618; A6253; A6258; A6446; A6449; A7000; A7048; C1751; C1768; C9520; G0378; J0171; J0282; J0665; J0690; J1250; J1644; J1815; J1940; J2060; J2150; J2250; J2270; J2371; J2704; J2720; J2919; J3010; J3370; J3372; J3480; J3490; J7030; J7040; J7050; J7060; J7120; P9035; P9045; P9047